=== PATIENT | female | born 1995 | race Caucasian/White ===

== ENCOUNTER → 2017-12-27 17:40 | Observation (INO) ==
[2017-12-27 15:59] LABS: Basophils # 0.1 K/mcL (0.0-0.2); Basophils % 0.5 %; Eosinophils # 0.2 K/mcL (0.0-0.6); Eosinophils % 1.4 %; Hematocrit 37.8 % (35.3-44.9); Hemoglobin 12.8 g/dL (11.5-15.4); Immature Granulocytes % 0.8 % (0-4); Lymphocytes # 2.6 K/mcL (0.6-4.6); Mean Corpuscular HGB Conc 33.9 g/dL (31.6-35.5); Mean Corpuscular Hemoglobin 29.7 pg (28.0-33.3); Mean Corpuscular Volume 87.7 fL (83.0-100.0); Mean Platelet Volume 9.8 fL (9.4-12.4); Monocytes # 0.5 K/mcL (0.0-1.3); Monocytes % 4.9 %; Neutrophils # 7.1 K/mcL (1.6-8.9); Platelet Count 201 K/mcL (140-400); Red Blood Count 4.31 M/mcL (3.82-4.97); Red Cell Distribution Width 14.1 % (11.5-14.5); Segmented Neutrophils % 67.4 %
[2017-12-27 16:08] LABS: Amphetamine Screen,Urine Negative ng/mL (Cutoff=1000); Barbiturate Screen,Urine Negative ng/mL (Cutoff=200); Benzodiazepines Screen,Urine Negative ng/mL (Cutoff=200); Cannabinoid Screen,Urine Negative ng/mL (Cutoff = 50); Cocaine Screen,Urine Negative ng/mL (Cutoff= 300); Opiate Screen,Urine Negative ng/mL (Cutoff=300); Phencyclidine Screen,Urine Negative ng/mL (Cutoff=25)
[2017-12-27 16:20] LABS: Alanine Aminotransferase 9 Units/L (7-52); Aspartate Amino Transferase 14 Units/L (13-39); BUN/Creatinine Ratio 14 (6-26); Blood Urea Nitrogen 9 mg/dL (6-20); Lactate Dehydrogenase 128 Units/L (140-271); Uric Acid 8.5 mg/dL (2.3-7.6); eGFR For African Americans > 60 (> 60); eGFR For Non-African Americans > 60 (> 60)
--- NOTE | 2017-12-27 16:32 | OB/GYN Progress Note ---
Date of Encounter: 12/27/17 Time of Encounter: 16:29 - Assessment and Plan (1) 38 weeks gestation of Current Visit: Yes Status: Acute admitted for observation (2) NST (non-stress test) reactive on surveillance Current Visit: Yes Status: Acute baseline 140 bpm moderate variability +15x15 accels no decels noted. Subjective - Subjective Principal diagnosis: elevated BP Interval history: Patient is a 22 y/o at 38w3d presents to labor and delivery for PIH evaluation following an elevated BP in office. Patient denies headache, visual disturbances or epigastric pain. Patient denies LOF, VB or contractions. Patient reports +FM. PIH labs sent along with protein creat ratio. Antepartum ROS: movement normal, no loss of fluid, no vaginal bleeding, no contractions Objective - Vital Signs Vital Signs: Intake and Output 12/27/17 12/27/17 12/27/17 07:59 15:59 23:59 Other: Weight 85.2 kg Patient Weight 12/27/17 23:59 Weight 85.2 kg - Exam FHR: auscultation normal, category 1 FHR comments: 140 bpm moderate variability +15x15 accels no decels noted. Contractions irregular Auscultation: bilateral: normal Abdomen: Present: normal appearance, soft, gravid Uterus: Present: normal Comments: 1+ edema bilateral lower extremities. 2+ DTRs - Labs Labs: Abnormal lab results Uric Acid 8.5 mg/dL (2.3-7.6) H 12/27/17 15:43 Lactate Dehydrogenase 128 Units/L (140-271) L 12/27/17 15:43
[2017-12-27 17:26] LABS: Creatinine,Urine 45 mg/dL; Protein/Creatinine Ratio,Urine 0.22 mg/mg (0.00-0.20)
== END | disposition home or self-care (01) ==
LOC: 1NENULAB
PROVIDERS: ADMIT Advanced Practice Midwife; ATTEND Advanced Practice Midwife

== ENCOUNTER → 2017-12-31 20:45 | Observation (INO) ==
--- NOTE | 2017-12-31 18:44 | OB/GYN Progress Note ---
Date of Encounter: 12/31/17 Time of Encounter: 18:38 - Assessment and Plan (1) 39 weeks gestation of Current Visit: Yes Status: Acute Urine studies - negative CEFM x 2 hours No cervical change x 2 hours Labor precautions given Offered admission - patient declined Discharge home with strict parameters for when to return (2) NST (non-stress test) reactive on surveillance Current Visit: Yes Status: Acute Subjective - Subjective Principal diagnosis: contractions Interval history: This is a 22-year-old at 39 weeks gestation with an estimated date of of 01/06/18. She presents today with complaints of leaking fluid since this morning at 8 AM followed by contractions starting about every 5 minutes since 4:15 PM. She reports positive movement and denies vaginal bleeding. Her has been uncomplicated so far. Antepartum ROS: new complaints, loss of fluid, movement normal, contractions, no vaginal bleeding Objective - Exam FHR: category 1 FHR comments: Baseline 140 Moderate variability Accelerations present 10x10 Singular variable deceleration FHR Category I Contractions every 3-7 minutes on toco and palpate moderate Auscultation: bilateral: normal Abdomen: Present: normal appearance, soft, gravid Uterus: Present: normal, firm Cervical dilation: 3 Cervix effacement: 70 station: -3 Comments: No cervical change after 2 hours
[2017-12-31 19:03] LABS: Bilirubin,Urine Negative (Negative); Blood,Urine Trace (Negative); Clarity,Urine Cloudy (Clear); Color,Urine Yellow (Yellow); Glucose,Urine (UA) Normal (Normal); Ketones,Urine Negative (Negative); Leukocyte Esterase,Urine Small (Negative); Nitrite,Urine Negative (Negative); Protein,Urine Negative (Neg-Trace); Specific Gravity,Urine 1.006 (1.010-1.025); Urobilinogen,Urine Normal (Normal)
[2017-12-31 19:05] LABS: Bacteria,Urine None Seen per hpf (None-Few); Hyaline Casts,Urine None Seen per lpf (None-Few); RBC,Urine 0-3 per hpf (0-3); Squamous Epithelial Cell,Urine Many per lpf (None-Few)
[2017-12-31 19:23] LABS: Amphetamine Screen,Urine Negative ng/mL (Cutoff=1000); Barbiturate Screen,Urine Negative ng/mL (Cutoff=200); Benzodiazepines Screen,Urine Negative ng/mL (Cutoff=200); Cannabinoid Screen,Urine Negative ng/mL (Cutoff = 50); Cocaine Screen,Urine Negative ng/mL (Cutoff= 300); Opiate Screen,Urine Negative ng/mL (Cutoff=300); Phencyclidine Screen,Urine Negative ng/mL (Cutoff=25)
== END | disposition home or self-care (01) ==
LOC: 1NENULAB
PROVIDERS: ADMIT Obstetrics & Gynecology; ATTEND Obstetrics & Gynecology